=== PATIENT | female | born 1980 | race Two or more races ===

== ENCOUNTER 2023-05-13 23:34 | Emergency (ER) | payer MEDICAID, OTHER ==
[~2023-05-13] VITALS: Ht 154.9 cm; Wt 69.8 kg
[2023-05-14 00:36] LABS: Urine Bacteria FEW /hpf (None Seen); Urine Blood 3+ /uL (Negative); Urine Specific Gravity 1.006 (1.001-1.035); Urine WBC 1 /hpf (0 - 5)
[2023-05-14 02:57] LABS: Basophils # (auto) 0.1 10 ^3/uL (0-0.2); Eosinophils # (auto) 0.1 10 ^3/uL (0-0.8); Eosinophils % (auto) 1.1 % (0.0-7.0); Hematocrit 43.7 % (36.0-46.0); Hemoglobin 15.2 g/dL (12.2-16.2); Lymphocytes # (auto) 1.9 10 ^3/uL (0.4-5.4); Lymphocytes % (auto) 27.2 % (10.0-50.0); Mean Corpuscular Hemoglobin 29.6 pg (28.0-32.0); Mean Corpuscular Hgb Conc. 34.7 g/dL (32.0-36.0); Mean Corpuscular Volume 85.4 fL (80.0-100.0); Monocytes # (auto) 0.5 10 ^3/uL (0-1.3); Neutrophils # (auto) 4.5 10 ^3/uL (1.6-8.6); Neutrophils % (auto) 63.7 % (37.0-80.0); Nucleated Red Blood Cells % 0.1 %; Red Blood Cells 5.12 10^6/uL (4.0-5.20); Red Cell Distribution Width 12.9 % (11.8-14.3); White Blood Cell 7.1 10^3/uL (4.4-10.8)
[2023-05-14 03:18] LABS: Albumin 3.5 g/dL (3.4-5.0); Calcium 8.4 mg/dL (8.5-10.1); Potassium 4.1 mmol/L (3.5-5.1)
[2023-05-14 03:22] LABS: BUN/Creatinine Ratio 10.1 (10.0-20.0); Bilirubin, Total 0.2 mg/dL (0.2-1.0); Total Protein 6.8 g/dL (6.4-8.2)
[2023-05-14] MEDS ORDERED: PHEN95TA10 PO (05:35)
[2023-05-14] MEDS ORDERED: CEPH500T PO (05:35)
[2023-05-14] MEDS ORDERED: MECL1TAB32 PO (05:36)
[2023-05-14 06:15] VITALS: BP 116/82
== END 2023-05-14 06:19 | disposition home or self-care (01) ==
LOC: ER 23:34
DX: N39.0 Urinary tract infection, site not specified (principal); R42 Dizziness and giddiness; E11.65 Type 2 diabetes mellitus with hyperglycemia; I10 Essential (primary) hypertension; Z86.73 Personal history of transient ischemic attack (TIA), and cerebral infarction without residual deficits; Z32.02 Encounter for pregnancy test, result negative
CPT/HCPCS: 36415; 70450; 71045; 80053; 81001; 81025; 82010; 82962; 84484; 85025

== ENCOUNTER 2023-05-29 14:25 | Emergency (ER) | payer MEDICAID ==
[~2023-05-29] VITALS: Ht 154.9 cm; Wt 69.5 kg
[~2023-05-29 14:25] MED LIST: CEPH500T PO; MECL1TAB32 PO; PHEN95TA10 PO
[2023-05-29 15:14] LABS: Urine Bacteria NONE SEEN /hpf (None Seen); Urine Blood Negative /uL (Negative); Urine Hyaline Cast FEW /lpf (0 - 2); Urine Specific Gravity 1.014 (1.001-1.035); Urine WBC <1 /hpf (0 - 5)
[2023-05-29] MEDS ORDERED: SODIUM CHLORIDE 0.9% 1,000 ML IV ONE (15:15)
[2023-05-29 15:16] LABS: Basophils # (auto) 0.1 10 ^3/uL (0-0.2); Basophils % (auto) 2.1 % (0.0-2.0); Eosinophils # (auto) 0.1 10 ^3/uL (0-0.8); Eosinophils % (auto) 1.8 % (0.0-7.0); Hematocrit 43.4 % (36.0-46.0); Hemoglobin 14.8 g/dL (12.2-16.2); Lymphocytes # (auto) 1.8 10 ^3/uL (0.4-5.4); Lymphocytes % (auto) 36.4 % (10.0-50.0); Mean Corpuscular Hemoglobin 29.3 pg (28.0-32.0); Mean Corpuscular Hgb Conc. 34.1 g/dL (32.0-36.0); Monocytes # (auto) 0.3 10 ^3/uL (0-1.3); Monocytes % (auto) 5.9 % (0.0-12.0); Neutrophils # (auto) 2.7 10 ^3/uL (1.6-8.6); Neutrophils % (auto) 53.8 % (37.0-80.0); Nucleated Red Blood Cells % 0.1 %; Red Blood Cells 5.04 10^6/uL (4.0-5.20); White Blood Cell 4.9 10^3/uL (4.4-10.8)
[2023-05-29 15:46] LABS: BUN/Creatinine Ratio 8.5 (10.0-20.0); Calcium 8.6 mg/dL (8.5-10.1); Potassium 4.2 mmol/L (3.5-5.1)
[2023-05-29 15:59] VITALS: BP 151/93
[2023-05-29] MEDS ORDERED: InsuLIN REG 1unit/0.01ml Soln (100units/ml) IV ONE ×2 (16:00→16:15)
[2023-05-29] MEDS ORDERED: cefTRIAXone SOD 1,000 MG VL IM ONE (17:15)
[2023-05-29] MEDS ORDERED: METR-344 PO (17:37)
[2023-05-29] MEDS ORDERED: BENZ200C64 PO (17:38)
== END 2023-05-29 17:56 | disposition home or self-care (01) ==
LOC: ER 14:25
DX: N76.0 Acute vaginitis (principal); J03.90 Acute tonsillitis, unspecified; E11.65 Type 2 diabetes mellitus with hyperglycemia; I10 Essential (primary) hypertension; Z32.02 Encounter for pregnancy test, result negative; Z86.73 Personal history of transient ischemic attack (TIA), and cerebral infarction without residual deficits
CPT/HCPCS: 36415; 71045; 80048; 81001; 81025; 82962; 85025; 87210; 96361; 96372; 96374; 99284; J0696; J1815; J7030